=== PATIENT | female | born 1950 | race Caucasian/White ===

== ENCOUNTER 2017-10-27 12:51 | Inpatient (IN) | payer MEDICARE, MEDICAID ==
[~2017-10-27] VITALS: Ht 160 cm; Wt 80.3 kg
--- NOTE | 2017-10-27 13:00 | NUR ---
PT CAME IN WITH C/O DIZZINESS, DOUBLE VISION AND NAUSEA X 3 DAYS. PT AAOX4. AWAITING FOR MD LOVE. VSS. SAFETY AND COMFORT MEASURES PROVIDED. WILL MONITOR.
[2017-10-27] MEDS ORDERED: ACETAMINOPHEN ES 500 MG TABLET ONE (15:04)
--- NOTE | 2017-10-27 15:05 | NUR ---
PT REPORTS HEADACHE, REPORTED TO MD WITH VERBAL ORDERS TO GIVE 1GRAM TYLENOL PO. ORDERS CARRIED OUT.
[2017-10-27 15:21] LABS: BASOPHILS # (AUTO) 0.4 /CMM (0.0-0.2); BASOPHILS % (AUTO) 3.9 % (0.0-2.0); EOSINOPHILS % (AUTO) 2.2 % (0.0-6.0); HEMATOCRIT 44 % (33-45); HEMOGLOBIN 14.4 g/dL (11.5-14.8); LYMPHOCYTES # (AUTO) 4.1 /CMM (0.8-4.8); LYMPHOCYTES % (AUTO) 37.3 % (20.0-44.0); MEAN CORPUSCULAR HEMOGLOBIN 31 PG (26.0-33.0); MEAN CORPUSCULAR HGB CONC 33 g/dl (31.0-36.0); MEAN CORPUSCULAR VOLUME 95 fL (82-100); MONOCYTES # (AUTO) 0.5 /CMM (0.1-1.30); MONOCYTES % (AUTO) 4.9 % (2.0-12.0); NEUTROPHILS # (AUTO) 5.7 /CMM (1.8-8.9); NEUTROPHILS % (AUTO) 51.7 % (43.0-81.0); PLATELET COUNT (AUTO) 182 /CMM (150-450); RDW COEFFICIENT OF VARIATION 12.3 (11.5-15.0); RED BLOOD CELL COUNT(AUTO) 4.59 MIL/uL (4.0-5.2); WHITE BLOOD COUNT (AUTO) 10.9 K/uL (4.3-11.0)
[2017-10-27 15:29] LABS: CALCIUM, SERUM 9.3 mg/dL (8.5-10.1); CREATININE 0.7 mg/dL (0.6-1.3)
[2017-10-27 15:33] LABS: INR 1.11 (0.85-1.15)
[2017-10-27 15:35] LABS: ALBUMIN 3.9 g/dL (3.4-5.0); BILIRUBIN,DIRECT 0.1 mg/dL (0.0-0.2); BILIRUBIN,TOTAL 0.4 mg/dL (0.2-1.0); TOTAL PROTEIN, SERUM 7.4 g/dL (6.4-8.2)
[2017-10-27] MEDS ORDERED: CT SWABBABLE VALVE TRANS SET 1 EA INFUS.SET MC ONE (16:10)
[2017-10-27] MEDS ORDERED: IOHEXOL-350 100 ML VIAL IV ONE (16:10)
[2017-10-27] MEDS ORDERED: IV NS 0.9% 250 ML IV ONE (16:10)
--- NOTE | 2017-10-27 19:21 | NUR ---
CALLED NURSING METAL CASKET ASSEMBLER AND REQUESTED A MED SURG BED FOR THIS PT.
--- NOTE | 2017-10-27 19:22 | NUR ---
CALLED AND PAGED CYNDI HARLEY, INEZ
[2017-10-27] MEDS ORDERED: PREG150C PO (19:23)
[2017-10-27] MEDS ORDERED: METF10004 PO (19:23)
[2017-10-27] MEDS ORDERED: INSU100I30 SQ (19:23)
[2017-10-27] MEDS ORDERED: INSU100V11 SQ (19:23)
[2017-10-27] MEDS ORDERED: METO-356 PO (19:23)
--- NOTE | 2017-10-27 20:13 | NUR ---
PT IS ASSIGNED TO MED SURG RM#: [id number], DX: DIPLOPIA, AND ACCEPTING: CYNDI HARLEY DNP
--- NOTE | 2017-10-27 20:40 | NUR ---
RN ADMITTING NOTES RECEIVED REPORT FROM ASBESTOS SHINGLE ROOFER LYUDMILA. Pt ARRIVED TO THE FLOOR VIA WHEELCHAIR. Pt WAS ABLE TO WALK TO THE ROOM BED WITH STEADY GAIT. NO S/S OF ACUTE DISTRESS OR SOB NOTED. Pt IS A/OX4, VERBAL, ABLE TO MAKE NEEDS KNOWN. FAMILY VISITING AT BEDSIDE. IV ACCESS ON RFA #18G. SAFETY MEASURES IN PLACE. BED LOW, LOCKED, HOB ELEVATED, SIDE RAILS UP, CALL LIGHT AND BEDSIDE TABLE WITHIN REACH. WILL CONTINUE TO MONITOR Pt THROUGHOUT THE NIGHT FOR SAFETY.
[2017-10-27 21:00] VITALS: BP 125/69
[2017-10-27 21:50] VITALS: BP 125/69
[2017-10-27] MEDS ORDERED: MAG HYDROX/AL HYDROX/SIMETH 30 ML UDC PO PRN (22:00)
[2017-10-27] MEDS ORDERED: Z GUARD REMEDY 2 OZ OINT TP PRN (22:00)
[2017-10-27] MEDS ORDERED: MAGNESIUM HYDROXIDE 30 ML UDC PO PRN (22:00)
[2017-10-27] MEDS ORDERED: HYDROCODONE/APAP 5/325MG 1 EACH TABLET PO PRN (22:00)
[2017-10-27] MEDS ORDERED: DEXTROSE 50%-WATER 50 ML DISP.SYRIN IV PRN (22:00)
[2017-10-27] MEDS ORDERED: ACETAMINOPHEN 325 MG TABLET PO PRN (22:00)
[2017-10-27] MEDS ORDERED: ONDANSETRON HCL/PF 4 MG/2 ML VIAL IVP PRN (22:00)
[2017-10-27] MEDS ORDERED: LORAZEPAM 1 MG TABLET PO PRN (23:00)
[2017-10-27] MEDS ORDERED: ALPRAZOLAM 1 MG TABLET PO PRN (23:00)
[2017-10-27] MEDS: BLOOD SUGAR DIAGNOSTIC 1 EACH STRIP IN SCH (23:11)
[2017-10-27] MEDS: IV NS 0.9% 1,000 ML IV PRN (23:11)
--- NOTE | 2017-10-27 23:30 | NUR ---
RN NOTES Pt's BG CHECK 244. STILL WAITING FOR PHARMACY TO VERIFY LANTUS ORDER OF 20UN. ONCE VERIFIED WILL ADMINISTER TO Pt.
[2017-10-27] MEDS: ZOLPIDEM TARTRATE 5 MG TABLET PO PRN (23:53)
--- NOTE | 2017-10-28 | NUR ---
RN NOTES LANTUS VERIFIED BY PHARMACY. ADMINISTERED LANTUS 20UN. BG 244.
[2017-10-28] MEDS: INSULIN GLARGINE, 100 UNIT/ML CARTRIDGE SQ SCH ×2 (00:15→22:24)
--- NOTE | 2017-10-28 05:51 | NUR ---
RN NOTES IV ACCESS ON RAC #18G INFILTRATED & LEAKING. REMOVED IV & SECURED AREA WITH GAUZE AND TAPE. STARTED NEW IV ACCESS ON RFA #22G.
[2017-10-28] MEDS: BLOOD SUGAR DIAGNOSTIC 1 EACH STRIP IN SCH ×4 (06:24→22:18)
[2017-10-28] MEDS: INSULIN REGULAR, HUMAN 100 UNIT/ML 3 ML VIAL SQ PRN ×4 (06:27→22:25)
--- NOTE | 2017-10-28 06:32 | NUR ---
RN NOTES AC ACCUCHECK BG 162. ADMINISTERED 3UN OF INSULIN COVERAGE PER SLIDING SCALE.
--- NOTE | 2017-10-28 06:38 | NUR ---
RN CLOSING NOTES NO SIGNIFICANT CHANGES IN Pt's CONDITION. Pt REMAINS STABLE AT THIS TIME. NO S/S OF ACUTE DISTRESS OR SOB NOTED DURING THE NIGHT. ALL NEEDS MET AND ATTENDED TO. SAFETY MEASURES IN PLACE. BED LOW, LOCKED, HOB ELEVATED, SIDE RAILS, CALL LIGHT AND BEDSIDE TABLE WITHIN REACH. WAITING TO HAVE MRI OF THE PAULINA WITHOUT CONTRAST LATER TODAY. INFORMED Pt THAT SHE WILL HAVE TO REMOVE HER RING FOR THE MRI. MIKALA HANNA ORDERED X1 DOSE OF XANAX FOR Pt TO TAKE PRIOR TO MRI DUE TO Pt's ANXIETY CAUSED BY CLAUSTROPHOBIA. WILL ENDORSE TO PILY RN FOR Pt's YULY.
[2017-10-28 07:14] LABS: BASOPHILS % (AUTO) 0.3 % (0.0-2.0); EOSINOPHILS % (AUTO) 2.9 % (0.0-6.0); HEMATOCRIT 40 % (33-45); HEMOGLOBIN 13.1 g/dL (11.5-14.8); LYMPHOCYTES # (AUTO) 4.9 /CMM (0.8-4.8); LYMPHOCYTES % (AUTO) 49.4 % (20.0-44.0); MEAN CORPUSCULAR HEMOGLOBIN 32 PG (26.0-33.0); MEAN CORPUSCULAR HGB CONC 33 g/dl (31.0-36.0); MEAN CORPUSCULAR VOLUME 99 fL (82-100); MONOCYTES # (AUTO) 0.5 /CMM (0.1-1.30); MONOCYTES % (AUTO) 4.8 % (2.0-12.0); NEUTROPHILS # (AUTO) 4.2 /CMM (1.8-8.9); NEUTROPHILS % (AUTO) 42.6 % (43.0-81.0); PLATELET COUNT (AUTO) 180 /CMM (150-450); RDW COEFFICIENT OF VARIATION 13.3 (11.5-15.0); RED BLOOD CELL COUNT(AUTO) 4.06 MIL/uL (4.0-5.2); WHITE BLOOD COUNT (AUTO) 9.9 K/uL (4.3-11.0)
[2017-10-28 07:15] LABS: THYROID STIMULATING HORMONE 4.365 uIU/mL (0.358-3.74)
[2017-10-28 07:24] LABS: CALCIUM, SERUM 8.2 mg/dL (8.5-10.1); CREATININE 0.7 mg/dL (0.6-1.3); PHOSPHORUS 4.2 mg/dL (2.5-4.9); POTASSIUM 3.8 mmol/L (3.5-5.1)
--- NOTE | 2017-10-28 07:42 | NUR ---
MS RN OPENING NOTES RECEIVED PT LAYING IN BED WITH HOB ELEVATED. PT IS A/O X4, AFEBRILE. RESPIRATIONS ARE EVEN AND UNLABORED, NOT IN ANY ACUTE DISTRESS NOTED. PT DENIES ANY PAIN, NO N/V OR SOB NOTED. IV SITE INTACT, NO INFILTRATION NOTED. DRESSING KEPT CLEAN AND DRY. SAFETY MEASURES ARE IN PLACE. INSTRUCTED PT TO USE CALL LIGHT WHEN ASSISTANCE IS NEEDED, CALL LIGHT IS LEFT WITHIN REACH. WILL CONTINUE TO MONITOR THROUGHOUT SHIFT FOR CONTINUITY OF CARE.
[2017-10-28 08:00] VITALS: BP 111/67
[2017-10-28] MEDS: PANTOPRAZOLE 40 MG TABLET.DR PO SCH (08:21)
[2017-10-28] MEDS: METOPROLOL SUCCINATE 25 MG TAB.SR.24H PO SCH (08:22)
[2017-10-28] MEDS: Magnesium 1GM/D5W 100ML PREMIX 100 ML IV SCH ×2 (13:18→14:26)
[2017-10-28] MEDS ORDERED: Magnesium 1GM/D5W 100ML PREMIX PIGGYBACK IV ONE (13:30)
[2017-10-28] MEDS: IV NS 0.9% 1,000 ML IV PRN (14:28)
[2017-10-28 16:00] VITALS: BP 138/66
--- NOTE | 2017-10-28 18:25 | NUR ---
MS RN CLOSING NOTES ALL DUE MEDS GIVEN, NEEDS MET AND ANTICIPATED. PT REMAINS A/O X4, AFEBRILE. RESPIRATIONS ARE EVEN AND UNLABORED, NOT IN ANY ACUTE DISTRESS NOTED. DENIES ANY PAIN AT THIS TIME. IV SITE INTACT, NO INFILTRATION NOTED. DRESSING KEPT CLEAN AND DRY. IV FLUIDS INFUSING AT 75ML/HR, TOLERATING WELL. SAFETY MEASURES ARE IN PLACE. CALL LIGHT IS LEFT WITHIN REACH. WILL ENDORSE TO NEXT SHIFT FOR CONTINUITY OF CARE.
--- NOTE | 2017-10-28 19:35 | NUR ---
RN OPENING NOTES RECEIVED REPORT FROM DAYSHISARAH RN RITESH. FOUND Pt AWAKE, RESTING IN BED. FAMILY VISITING AT BEDSIDE. NO S/S OF ACUTE DISTRESS OR SOB NOTED. Pt IS A/OX4, VERBAL, ABLE TO MAKE NEEDS KNOWN. IV ACCESS ON RFA #22G, IVF NS @75ML/HR, INFUSING WELL. DC TOMORROW AM. 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 SAFETY MEASURES IN PLACE. BED LOW, LOCKED, HOB ELEVATED, SIDE RAILS UP, CALL LIGHT AND BEDSIDE TABLE WITHIN REACH. WILL CONTINUE TO MONITOR Pt THROUGHOUT THE NIGHT FOR SAFETY.
[2017-10-28 20:42] VITALS: BP 118/74
[2017-10-28 21:00] VITALS: BP 118/74
[2017-10-28] MEDS ORDERED: PREGABALIN 25 MG CAPSULE PO SCH (22:00)
--- NOTE | 2017-10-28 22:30 | NUR ---
RN NOTES HS ACCUCHECK BG 360. ADMINISTERED SCHEDULED LANTUS 20 UNITS AND ADMINISTERED ADDITIONAL INSULIN COVERAGE OF 10UN PER SLIDING SCALE. WILL RECHECK BG IN THE AM.
[2017-10-28] MEDS: ZOLPIDEM TARTRATE 5 MG TABLET PO PRN (22:57)
--- NOTE | 2017-10-29 06:25 | NUR ---
RN NOTES AC ACCUCHECK BG 302. ADMINISTERED 8UN OF INSULIN PER SLIDING SCALE.
[2017-10-29] MEDS: BLOOD SUGAR DIAGNOSTIC 1 EACH STRIP IN SCH ×2 (06:26→11:40)
[2017-10-29] MEDS: INSULIN REGULAR, HUMAN 100 UNIT/ML 3 ML VIAL SQ PRN ×2 (06:28→11:45)
--- NOTE | 2017-10-29 06:35 | NUR ---
RN CLOSING NOTES NO SIGNIFICANT CHANGES IN Pt's CONDITION. Pt REMAINS STABLE AT THIS TIME. NO S/S OF ACUTE DISTRESS OR SOB NOTED DURING THE NIGHT. Pt SLEPT WELL WITH EVEN AND UNLABORED RESPIRATIONS. ALL NEEDS MET AND ATTENDED TO. SAFETY MEASURES IN PLACE. BED LOW, LOCKED, HOB ELEVATED, SIDE RAILS UP, CALL LIGHT AND BEDSIDE TABLE WITHIN REACH. ANTICIPATED DC HOME TODAY. WILL ENDORSE TO DAYSHIFT RN FOR Pt's YULY.
[2017-10-29 06:54] LABS: BASOPHILS % (AUTO) 0.5 % (0.0-2.0); HEMATOCRIT 39 % (33-45); HEMOGLOBIN 12.6 g/dL (11.5-14.8); LYMPHOCYTES # (AUTO) 3.9 /CMM (0.8-4.8); LYMPHOCYTES % (AUTO) 48.4 % (20.0-44.0); MEAN CORPUSCULAR HEMOGLOBIN 32 PG (26.0-33.0); MEAN CORPUSCULAR HGB CONC 32 g/dl (31.0-36.0); MEAN CORPUSCULAR VOLUME 99 fL (82-100); MONOCYTES # (AUTO) 0.4 /CMM (0.1-1.30); MONOCYTES % (AUTO) 5.3 % (2.0-12.0); NEUTROPHILS # (AUTO) 3.5 /CMM (1.8-8.9); NEUTROPHILS % (AUTO) 42.8 % (43.0-81.0); PLATELET COUNT (AUTO) 158 /CMM (150-450); RDW COEFFICIENT OF VARIATION 13.3 (11.5-15.0); RED BLOOD CELL COUNT(AUTO) 3.93 MIL/uL (4.0-5.2); WHITE BLOOD COUNT (AUTO) 8.1 K/uL (4.3-11.0)
[2017-10-29 06:58] LABS: CALCIUM, SERUM 8.3 mg/dL (8.5-10.1); CREATININE 0.6 mg/dL (0.6-1.3); MAGNESIUM 1.3 mg/dL (1.8-2.4); POTASSIUM 4.2 mmol/L (3.5-5.1)
--- NOTE | 2017-10-29 07:30 | NUR ---
RN NOTE PATIENT A/OX4, BREATHING EVEN AND UNLABORED, NO SOB NOTED, DENIES PAIN OR DISCOMFORT NOTED, KEPT COMFORTABLE, PER PATIENT SHE WANTS TO SLEEP MORE. NEEDS ATTENDED AND MET, CALL LIGHT WITHIN REACH, WILL CONTINUE TO MONITOR.
[2017-10-29] MEDS: PANTOPRAZOLE 40 MG TABLET.DR PO SCH (08:54)
[2017-10-29] MEDS: METOPROLOL SUCCINATE 25 MG TAB.SR.24H PO SCH (08:54)
[2017-10-29 09:01] VITALS: BP 137/79
[2017-10-29] MEDS ORDERED: Magnesium 1GM/D5W 100ML PREMIX PIGGYBACK IV ONE (11:30)
[2017-10-29] MEDS: Magnesium 1GM/D5W 100ML PREMIX 100 ML IV SCH ×2 (11:38→12:39)
--- NOTE | 2017-10-29 14:45 | NUR ---
COMPUTER APPLICATIONS ENGINEER PATIENT A/OX4, NO DISTRESS NOTED, PATIENT RECEIVED DISCHARGE INSTRUCTIONS AND VERBALIZED UNDERSTANDING. PAPERWORKS SIGNED AND COPIES GIVEN TO THE PATIENT. SKIN ASSESSMENT COMPLETED SKIN DRY AND INTACT, BELONGINGS RECONCILED AND COMPLETE, PERIPHERAL IV REMOVED AND APPLIED GAUZE AND TAPE. NEEDS ATTENDED AND MET, PATIENT LEFT THE FACILITY IN NO DISTRESS, PICKED UP BY FAMILY MEMBER IN THE LOBBY.
== END 2017-10-29 14:45 | disposition home or self-care (01) | DRG 123 ==
LOC: ER 12:52 → MEDSG2 20:17
PROVIDERS: ADMIT Hospitalist; ATTEND Hospitalist
DX: H49.22 Sixth [abducent] nerve palsy, left eye (principal); H53.2 Diplopia; E11.65 Type 2 diabetes mellitus with hyperglycemia; I10 Essential (primary) hypertension; E83.42 Hypomagnesemia; E66.9 Obesity, unspecified; Z68.31 Body mass index [BMI] 31.0-31.9, adult
CPT/HCPCS: 36415; 70496-TC; 70498-TC; 70551-TC; 80048-TC; 80061-TC; 80076-TC; 82962-TC; 83519; 83735-TC; 84100-TC; 84443-TC; 85025-TC; 85652-TC; 85730-TC; 86140-TC; 86850-TC; 87081-TC; A4606; A6410; J1815; J3475; J7030; J7050; Q9967; Z7610